=== PATIENT | male | born 1995 | race Asian ===

== ENCOUNTER 2016-07-16 15:27 | Outpatient (CLI) | payer BC, OTHER | END 2016-07-16 15:28 | disposition critical access hospital (66) | LOC: EMS 15:27 | PROVIDERS: ATTEND Surgery | DX: R46.89 Other symptoms and signs involving appearance and behavior (principal) | CPT/HCPCS: A0425; A0427 ==

== ENCOUNTER 2016-07-16 15:40 | Emergency (ER) | payer BC, OTHER ==
[2016-07-16] MEDS ORDERED: SODIUM CHLORIDE 0.9% 2,000 ML IV ONE (15:46)
[2016-07-16] MEDS ORDERED: HALOPERIDOL 5 MG/ML VIAL IVP ONE (15:47)
[2016-07-16] MEDS ORDERED: HALOPERIDOL 5 MG/ML VIAL ONE (15:50)
--- NOTE | 2016-07-16 15:54 | ED Physician Documentation ---
History of Present Illness - Stated complaint Stated Complaint: AMS - Chief complaint Chief Complaint: General - History obtained from History obtained from: EMS - History of Present Illness Timing: Other (Brought in by ambulance accompanied by a friend who was also using drugs with him. He admits to using LSD. He was running around the neighborhood naked. Had to be tackled by police and has some abrasions on the anterior shoulders. He is not cooperative with history or physical. He had 3 mg of Versed prior to arrival.) Review of Systems Unable to obtain: Uncooperative PD PAST MEDICAL HISTORY - Past Surgical History Past Surgical History: No - Present Medications Home Medications: Ambulatory Orders Medication Instructions Recorded Confirmed No Known Home Medications [No 01/28/13 01/28/13 Known Home Medications] - Allergies Allergies/Adverse Reactions: Allergies Allergy/AdvReac Type Severity Reaction Status Date / Time No Known Drug Allergies Allergy Verified 01/28/13 15:40 - Social History Does the pt smoke?: No Smoking Status: Never smoker Does the pt drink ETOH?: No Does the pt have substance abuse?: No - Immunizations Immunizations are current?: Yes - POLST Patient has POLST: No PD ED PE NORMAL - Vitals Vital signs reviewed: Yes - General General: Other (He is nonverbal, seems to be responding to external stimuli, pupils are very dilated. He is occasionally laughing inappropriately.) - HEENT HEENT: Other (dry mucous membranes) - Neck Neck: Supple, no meningeal sign, No bony TTP - Cardiac Cardiac: Other (quite tachycardic) - Respiratory Respiratory: No respiratory distress, Clear bilaterally - Abdomen Abdomen: Soft, Non tender - Extremities Extremities: No deformity, No tenderness to palpate, Other (Abrasions on the anterior parts of both shoulders but no underlying tenderness or seemingly limited range of motion.) - Neuro Neuro: No motor deficit, No sensory deficit Results - Vitals Vitals: Vital Signs - 24 hr 07/16/16 07/16/16 07/16/16 15:43 16:25 17:01 Temperature 38.5 C H Heart Rate 156 H 122 H 128 H Respiratory 20 16 14 Rate Blood Pressure 152/81 H 126/72 127/73 O2 Saturation 95 94 96 07/16/16 07/16/16 07/16/16 17:50 19:30 20:21 Temperature 37 C Heart Rate 125 H 81 104 H Respiratory 14 14 18 Rate Blood Pressure 141/79 H 107/56 L 102/57 L O2 Saturation 96 96 98 Oxygen O2 Source Room air - EKG (time done) 1557 Rate: Rate (enter#) (125) Rhythm: NSR [place]: Normal Intervals: Normal HI QRS: Normal Ischemia: Normal ST segments Computer interpretation: Agree with computer - Labs Labs: Laboratory Tests 07/16/16 07/16/16 17:30 17:30 WBC 28.3 H RBC 5.02 Hgb 15.3 Hct 44.7 MCV 89.1 MCH 30.4 MCHC 34.1 RDW 13.3 Plt Count 256 MPV 7.7 Neut # Not Reportable Lymph # Not Reportable [place] # Not Reportable Eos # Not Reportable Baso # Not Reportable Absolute Nucleated RBC Not Reportable Band Neuts % (Manual) Not Reportable Nucleated RBCs Not Reportable Differential Comment MANUA WBC Morphology 1+ TOXIC GRANULATION Platelet Estimate NORMAL (130-450,000) Platelet Morphology 1+ GIANT PLATELETS RBC Morph Micro Appear NORMAL APPEARANCE Sodium 139 Potassium 3.7 Chloride 106 Carbon Dioxide 25 Anion Gap 8.0 BUN 13 Creatinine 1.0 Estimated GFR (MDRD) 95 Glucose 94 Calcium 9.2 Total Bilirubin 1.0 AST 33 ALT 20 Alkaline Phosphatase 43 Total Protein 8.1 Albumin 5.0 Globulin 3.1 Albumin/Globulin Ratio 1.6 Lipase 20 L Salicylates < 6.0 Acetaminophen < 10 L Ethyl Alcohol < 5.0 PD MEDICAL DECISION MAKING - ED course ED course: On arrival he was confused, belligerent, and combative. He required divided doses of Ativan and Haldol to calm him down for patient and staff safety. He was given 2 fluid boluses. He had a significant sinus tachycardia that responded to these measures. He was able to range his shoulders without difficulty. Over the course of several hours she became cogent, ate and drank without difficulty and was ambulating and not confused. Some family friends came and picked him up. Departure - Departure Disposition: 01 Home, Self Care Clinical Impression: Drug overdose Qualifiers: Encounter type: initial encounter Injury intent: undetermined intent Qualified Code(s): T50.904A - Poisoning by unspecified drugs, medicaments and biological substances, undetermined, initial encounter Condition: Good Record reviewed to determine appropriate education?: Yes Instructions: ED Drug Abuse General Comments: Call your doctor to arrange a follow up appointment. Make the next available appointment. In the interim return anytime if worse or if new symptoms develop.
[2016-07-16] MEDS ORDERED: LORazepam 2 MG/ML SYRINGE IVP STA (16:32)
[2016-07-16] MEDS ORDERED: LORazepam 2 MG/ML SYRINGE ONE (16:32)
[2016-07-16 17:45] LABS: BASOPHILS % (AUTO) 0.3 %; HCT - HEMATOCRIT 44.7 % (42.0-52.0); HGB - HEMOGLOBIN 15.3 g/dL (14.0-18.0); LYMPHOCYTES % (AUTO) 3.3 %; MEAN CORPUSCULAR HEMOGLOBIN 30.4 pg (27.0-31.0); MEAN CORPUSCULAR HGB CONC 34.1 g/dL (32.0-36.0); MEAN CORPUSCULAR VOLUME 89.1 fL (80.0-94.0); MEAN PLATELET VOLUME 7.7 fL (7.4-11.4); MONOCYTES % (AUTO) 6.5 %; NEUTROPHILS % (AUTO) 89.9 %; RED BLOOD COUNT 5.02 10^6/uL (4.70-6.10); RED CELL DISTRIBUTION WIDTH 13.3 % (12.0-15.0); UNCORRECTED WHITE BLOOD COUNT 28.3 x10^3/uL; WHITE BLOOD COUNT 28.3 x10^3/uL (4.8-10.8)
[2016-07-16 17:46] LABS: ALBUMIN/GLOBULIN RATIO 1.6 (1.0-2.2); BUN - BLOOD UREA NITROGEN 13 mg/dL (6-20); CALCIUM 9.2 mg/dL (8.5-10.3); CARBON DIOXIDE - CO2 25 mmol/L (21-32); CHLORIDE 106 mmol/L (101-111); GFR - MDRD 95 (>89); GLUCOSE 94 mg/dL (70-100); LIPASE 20 U/L (22-51); POTASSIUM 3.7 mmol/L (3.5-5.0); SALICYLATE < 6.0 mg/dL; SODIUM 139 mmol/L (135-145); TOTAL PROTEIN 8.1 g/dL (6.7-8.2)
[2016-07-16 17:48] LABS: ACETAMINOPHEN < 10 ug/mL (10-30)
[2016-07-16 18:14] LABS: PLATELET ESTIMATE, MANUAL NORMAL (130-450,000) (NORMAL); PLATELET MORPHOLOGY 1+ GIANT PLATELETS (NORMAL); WBC MORPHOLOGY (MULTIPLE) 1+ TOXIC GRANULATION (NORMAL)
[2016-07-16 18:15] LABS: NP AUTO DIFFERENTIAL? NO; NP MAN DIFFERENTIAL? YES
[2016-07-16 22:26] VITALS: BP 129/74
== END 2016-07-16 21:00 | disposition home or self-care (01) ==
LOC: ED 15:40
DX: T40.8X1A Poisoning by lysergide [LSD], accidental (unintentional), initial encounter (principal); R41.82 Altered mental status, unspecified; R00.0 Tachycardia, unspecified; F16.988 Hallucinogen use, unspecified with other hallucinogen-induced disorder; S40.212A Abrasion of left shoulder, initial encounter; S40.211A Abrasion of right shoulder, initial encounter; Y35.813A Legal intervention involving manhandling, suspect injured, initial encounter; Y93.89 Activity, other specified; Y92.410 Unspecified street and highway as the place of occurrence of the external cause
CPT/HCPCS: 36415; 80053; 80307; 80320; 80329; 83690; 85025; 93005; 93010; 96374; 96375; 99284; 99285; J2060

== ENCOUNTER 2016-07-17 20:39 | Emergency (ER) | payer BC, OTHER ==
[2016-07-17 20:49] VITALS: BP 161/96
[2016-07-17] MEDS ORDERED: SODIUM CHLORIDE 0.9% 1,000 ML IV ONE (20:53)
[2016-07-17] MEDS ORDERED: diazePAM INJ 5 MG/ML SYRINGE IVP STA (20:53)
--- NOTE | 2016-07-17 20:59 | ED Physician Documentation ---
History of Present Illness - Stated complaint Stated Complaint: NECK PX - Chief complaint Chief Complaint: Trauma Hd/Nk - History obtained from History obtained from: Patient, Family (uncle with whom the patient gives verbal consent to discuss details of yesterday's visit.) - History of Present Illness Timing: Yesterday (He was tackled by police yesterday while high on drugs, see yesterday's note. Today at about 5 o'clock pm without further trauma developed neck pain, in the midline and has difficulty rotating the neck especially to the left. He hasn't eaten or drank much today, but feels okay generally. He denies ongoing drug abuse.) Review of Systems Constitutional: reports: Sweats. denies: Fever, Chills Throat: denies: Sore throat Cardiac: denies: Chest pain / pressure, Palpitations Respiratory: denies: Dyspnea, Cough PD PAST MEDICAL HISTORY - Past Medical History Past Medical History: No Cardiovascular: None Respiratory: None Neuro: None Endocrine/Autoimmune: None GI: None : None HEENT: None Psych: None Musculoskeletal: None Derm: None - Past Surgical History Past Surgical History: No - Present Medications Home Medications: Ambulatory Orders Medication Instructions Recorded Confirmed Lorazepam [Ativan] 1 mg PO TID PRN #7 tablet 07/17/16 - Allergies Allergies/Adverse Reactions: Allergies Allergy/AdvReac Type Severity Reaction Status Date / Time No Known Drug Allergies Allergy Verified 01/28/13 15:40 - Social History Does the pt smoke?: No Smoking Status: Never smoker Does the pt drink ETOH?: No Does the pt have substance abuse?: No - Immunizations Immunizations are current?: Yes - POLST Patient has POLST: No PD ED PE NORMAL - Vitals Vital signs reviewed: Yes - General General: Alert and oriented X 3, No acute distress - Neck Neck: Other (Mild tenderness in the midline of the neck and he is holding it rotated to the right but is able to straighten it out.) - Cardiac Cardiac: No murmur, Other (quite tachycardic) - Respiratory Respiratory: No respiratory distress, Clear bilaterally - Abdomen Abdomen: Non tender - Back Back: No CVA TTP, No spinal TTP - Derm Derm: Other (sweaty) - Neuro Neuro: Alert and oriented X 3, No motor deficit, No sensory deficit, Normal speech - Psych Psych: Normal mood, Normal affect Results - Vitals Vitals: Vital Signs - 24 hr 07/17/16 07/17/16 07/17/16 20:47 21:13 21:29 Temperature 36.3 C L Heart Rate 145 H 122 H 72 Respiratory 20 20 16 Rate Blood Pressure 161/96 H O2 Saturation 96 95 96 Oxygen O2 Source Room air - Labs Labs: Laboratory Tests 07/17/16 21:00 Sodium 137 Potassium 4.1 Chloride 102 Carbon Dioxide 21 Anion Gap 14.0 H BUN 15 Creatinine 0.8 Estimated GFR (MDRD) 123 Glucose 111 H Calcium 9.7 - Rads (name of study) C spine CT Radiology: EMP read contemporaneously (negative) PD MEDICAL DECISION MAKING - ED course ED course: Seems like he has neck spasm, but he was injured while intoxicated yesterday so imaging was obtained without findings of fracture. He was quite tachycardic but after the administration of IV fluids and a small amount of Valium felt better and his vital signs normalized. Departure - Departure Disposition: 01 Home, Self Care Clinical Impression: Neck muscle spasm, Dehydration Condition: Good Record reviewed to determine appropriate education?: Yes Instructions: ED Dehydration, ED Spasm Neck No Injury Prescriptions: Lorazepam [Ativan] 1 mg PO TID PRN #7 tablet PRN Reason: Spasms Comments: Call your doctor to arrange a follow up appointment. Make the next available appointment. In the interim return anytime if worse or if new symptoms develop. Your blood pressure was elevated today on check in to the emergency department. This does not mean that you have hypertension, it is a common phenomenon to check into the emergency department and have elevated blood pressure. I recommend that you see your primary care physician within the week to have it rechecked when you're feeling better. Forms: Activity restrictions
[2016-07-17] MEDS ORDERED: diazePAM INJ 5 MG/ML SYRINGE ONE (21:03)
[2016-07-17 21:15] LABS: CALCIUM 9.7 mg/dL (8.5-10.3); CREATININE 0.8 mg/dL (0.6-1.2); POTASSIUM 4.1 mmol/L (3.5-5.0)
--- NOTE | 2016-07-17 21:42 | CT Preliminary Report ---
Exam: CT Cervical Spine W/O IMPRESSION: No evidence for acute fracture in the cervical spine. [facility] SITE ID: [id number]
--- NOTE | 2016-07-17 21:45 | CT Report ---
EXAM: CT CERVICAL SPINE WITHOUT CONTRAST DATE: 07/17/2016 09:27 PM HISTORY: Neck pain, injury. Neck pain since yesterday. No trauma that the patient can remember COMPARISONS: None. TECHNIQUE: Thin-section axial images were acquired of the cervical spine without contrast. Post-proce ssing: Coronal and sagittal reformats. Other: None. In accordance with CT protocol optimization, one or more of the following dose reduction techniques w ere utilized for this exam: automated exposure control, adjustment of mA and/or KV based on patient s ize, or use of iterative reconstructive technique. FINDINGS: Alignment: No spondylolisthesis. Mild rightward curve. Bones: No fracture or bone lesion. Interspace Levels/Facets: Unremarkable. Other: The paravertebral and prevertebral soft tissues are normal. The lung apices are clear. IMPRESSION: No evidence for acute fracture in the cervical spine. [facility] Referring Provider Line: [phone] SITE ID: [id number]
== END 2016-07-17 22:01 | disposition home or self-care (01) ==
LOC: ED 20:39
DX: E86.0 Dehydration (principal); M62.838 Other muscle spasm; R03.0 Elevated blood-pressure reading, without diagnosis of hypertension
CPT/HCPCS: 36415; 72125; 80048; 96374; 99284